=== PATIENT | female | born 1950 | race African-American/Black ===

== ENCOUNTER → 2017-06-28 | Outpatient (CLI) | payer MEDICARE, OTHER ==
--- NOTE | 2017-06-28 15:50 | RAD ---
DATE: 06/28/2017 EXAM: DIGITAL DIAGNOSTIC BILATERAL, BREAST RIGHT HISTORY: Right axillary lump COMPARISON: 06/25/2015 This study was interpreted with the benefit of Computerized Aided Detection (CAD). The breast parenchyma is heterogeneously dense, which could reduce sensitivity of mammography. Breast parenchyma level C. FINDINGS: There is a tight cluster of heterogeneous microcalcifications in the posterolateral aspect of the right breast which are unchanged. A biopsy marker is again noted along the posterolateral aspect of these calcifications. The stability of these calcifications suggest that they are dystrophic postsurgical calcifications. No new or enlarging breast density is seen. A BB was placed over the area of palpable concern in the right axillary region and no underlying breast mass is seen. A benign-appearing lymph node type density is partially visualized in the left axilla. There are numerous benign type calcifications in both breasts. Right axillary ultrasound, 06/28/2017: A targeted ultrasound exam of the area of concern in the right axilla was performed. Normal heterogeneous soft tissues are evident. No cystic or solid mass is evident. IMPRESSION: 1. Stable postsurgical findings in the right breast. 2. No mammographic evidence of malignancy. 3. The targeted ultrasound exam of the right axillary region reveals no abnormality. Clinical surveillance is suggested. BI-RADS CATEGORY: 2 BENIGN FINDING(S) RECOMMENDED FOLLOW-UP: 12M 12 MONTH FOLLOW-UP PQRS compliance statement: Patient information was entered into a reminder system with a target due date for the next mammogram. Mammography is a sensitive method for finding small breast cancers, but it does not detect them all and is not a substitute for careful clinical examination. A negative mammogram does not negate a clinically suspicious finding and should not result in delay in biopsying a clinically suspicious abnormality. "Our facility is accredited by the [employer] Mammography Program."
== END | disposition home or self-care (01) ==
LOC: MAMMO 14:20
PROVIDERS: ATTEND Nurse Practitioner Family
DX: N63.10 Unspecified lump in the right breast, unspecified quadrant (principal); N64.4 Mastodynia
CPT/HCPCS: 76641; 77066